=== PATIENT | male | born 1985 | race Caucasian/White ===

== ENCOUNTER → 2017-07-22 | Day surgery (SDC) | payer OTHER ==
[2017-07-21 14:08] VITALS: Ht 188 cm; Wt 86.4 kg
[~2017-07-22] VITALS: Ht 188 cm; Wt 86.4 kg
[~2017-07-22] MED LIST: HYDR-3124 PO; LIDOCAINE HCL 2% LOCAL 20 ML VIAL ONE
--- NOTE | 2017-07-22 07:10 | History & Physical Bridge - [place] ---
H&P Re-Evaluation Bridge Note: I have examined the patient, reviewed the History & Physical and in the interval since the performance of the History & Physical I have noted the following changes of clinical significance: No changes noted
[2017-07-22 07:40] VITALS: BP 130/90; PULSE 71; TEMP 36.8; O2SAT 99
--- NOTE | 2017-07-22 07:44 | Discharge Instructions-SurgCtr ---
Discharge Instructions Date of Service Jul 22, 2017. Visit Reason for Visit: Foreign Body Left Palm Discharge Discharge Diagnosis / Problem: same Discharge Goals Goal(s): Improve function Activity Recommendations Activity Limitations: resume your previous activity Anesthesia . Post Anesthesia Instructions: If you have had General Anesthesia or IV Sedation: * Do not drive today. * Resume driving when surgeon permits. * Do not make important decisions or sign legal documents today. * Call surgeon for: 1. Temperature elevations greater than 101 degrees F. 2. Uncontrollable pain. 3. Excessive bleeding. 4. Persistent nausea and vomiting. 5. Medication intolerance (nausea, vomiting or rash). * For nausea and vomiting use only clear liquids such as: tea, soda, bouillon until nausea subsides, then gradually increase diet as tolerated. * If you have any concerns or questions, call your surgeon's office. If physician is unavailable and it is an emergency, call 911 or go to the nearest emergency room. . Diet Recommendations Home Diet: no limitations Procedures Procedures Performed: Left Palm Foreign Body Excision Pending Studies Studies pending at discharge: no Medical Emergencies . Who to Call and When: Medical Emergencies: If at any time you feel your situation is an emergency, please call 911 immediately. . Non-Emergent Contact Non-Emergency issues call your: Primary Care Provider . . "Provider Documentation" section prepared by Hossein Wellington. .
--- NOTE | 2017-07-22 07:55 | [facility] Post Operative Brief Note ---
Immediate Operative Summary Operative Date Jul 22, 2017. Pre-Operative Diagnosis Foreign Body Left Palm Post-Operative Diagnosis same Procedure(s) Performed Left Palm Foreign Body Excision Surgeon Dr. Wellington Ground In[employer] Basic Surgeon(s) none Estimated Blood Loss 0ml Findings Consistent with Post-Op Diagnosis Specimens none Drains None Anesthesia Type Local Complication(s) none Disposition Accompanied Pt To Recover: no (=)
--- NOTE | 2017-07-22 13:51 | OPERATIVE REPORT ---
DATE OF OPERATION: 07/22/2017 PREOPERATIVE DIAGNOSIS: Foreign body, left hand. POSTOPERATIVE DIAGNOSIS: Same. PROCEDURE: Includes removal of foreign body, left hand. DESCRIPTION OF PROCEDURE: The patient was brought to the minor procedure room. A tourniquet applied to his right upper humerus, prepped and draped sterile. Using the small C-arm, I was able to locate the small piece of metal with relative ease. I made a skin incision, pulled out the piece of metal, irrigated and closed with nylon. Sterile dressing applied. The patient returned to the recovery room satisfactory and stable. No blood loss, no complications. I attest to the content of the Intraoperative Record and any orders documented therein. Any exception s are noted below.
== END | disposition home or self-care (01) ==
LOC: X.SURG 06:11
PROVIDERS: ATTEND Orthopaedic Surgery Orthopaedic Surgery of the Spine
DX: S60.552A Superficial foreign body of left hand, initial encounter (principal); X58.XXXA Exposure to other specified factors, initial encounter; Z82.49 Family history of ischemic heart disease and other diseases of the circulatory system; Z82.3 Family history of stroke; Z83.3 Family history of diabetes mellitus